=== PATIENT | female | born 1995 | race Hispanic/Latino ===

== ENCOUNTER 2025-05-06 15:08 | Emergency (ER) | payer OTHER, BC ==
[~2025-05-06] VITALS: Ht 152.4 cm; Wt 59.0 kg
[2025-05-06] MEDS ORDERED: NAPR-1196 PO (15:47)
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
[2025-05-06 16:27] VITALS: BP 124/72; PULSE 78; RESP 18; TEMP 97.5; O2SAT 97
== END 2025-05-06 16:28 | disposition home or self-care (01) ==
LOC: EDH 15:08
DX: S46.911A Strain of unspecified muscle, fascia and tendon at shoulder and upper arm level, right arm, initial encounter (principal); S39.012A Strain of muscle, fascia and tendon of lower back, initial encounter; Z88.5 Allergy status to narcotic agent; Z90.49 Acquired absence of other specified parts of digestive tract; Y04.8XXA Assault by other bodily force, initial encounter; Y93.89 Activity, other specified; Y92.89 Other specified places as the place of occurrence of the external cause; Y99.0 Civilian activity done for income or pay
CPT/HCPCS: 99283